=== PATIENT | female | born 1990 | race Caucasian/White ===

== ENCOUNTER 2024-03-30 23:54 | Emergency (ER) | payer BC ==
[2024-03-31] MEDS ORDERED: Ondansetron ODT 4 MG TAB ONE (00:33)
[2024-03-31] MEDS ORDERED: Morphine 4 MG/ML VIAL ONE (00:33)
== END 2024-03-31 01:55 | disposition home or self-care (01) ==
LOC: CSHERS 23:54
DX: O20.0 Threatened abortion (principal); Z3A.01 Less than 8 weeks gestation of pregnancy
CPT/HCPCS: 96372; 99284; J2272; Q0162

== ENCOUNTER → 2024-04-05 | Day surgery (SDC) | payer BC | LOC: CSHLD/OP 15:43 | PROVIDERS: ATTEND Student in an Organized Health Care Education/Training Program | DX: O03.9 Complete or unspecified spontaneous abortion without complication (principal); Z67.91 Unspecified blood type, Rh negative | CPT/HCPCS: 86900; 86901; 90384; 96372 ==